=== PATIENT | male | born 1985 | race African-American/Black ===

== ENCOUNTER 2016-09-14 01:17 | Emergency (ER) | payer MEDICAID, OTHER ==
[~2016-09-14] VITALS: Ht 185.4 cm; Wt 113.6 kg
[~2016-09-14 01:17] MED LIST: AMLO2.5T2 PO; DIVA500T52 PO; DOCU250C91 PO; HALO50VI4 IM; LITH300C3 PO; OLAN20TA2 PO; QUET300T2 PO
[2016-09-14] MEDS ORDERED: PALI78DI IM (01:28)
[2016-09-14 02:25] VITALS: BP 133/80
== END 2016-09-14 02:28 | disposition home or self-care (01) ==
LOC: EMS 01:17
DX: S90.31XA Contusion of right foot, initial encounter (principal); F17.210 Nicotine dependence, cigarettes, uncomplicated; W04.XXXA Fall while being carried or supported by other persons, initial encounter; Y93.89 Activity, other specified; Y92.89 Other specified places as the place of occurrence of the external cause; Y99.8 Other external cause status
CPT/HCPCS: 99284

== ENCOUNTER 2016-12-08 00:19 | Emergency (ER) | payer OTHER ==
[~2016-12-08] VITALS: Ht 190.5 cm; Wt 109.0 kg
[~2016-12-08 00:19] MED LIST changes: -AMLO2.5T2 PO; -DIVA500T52 PO; -DOCU250C91 PO; -HALO50VI4 IM; -LITH300C3 PO; -OLAN20TA2 PO; +PALI78DI IM; -QUET300T2 PO
[2016-12-08] MEDS ORDERED: KETOROLAC TROMETHAMINE 60 MG/2 ML VIAL IM ONE (01:15)
[2016-12-08] MEDS ORDERED: ACETAMINOPHEN 500 MG TABLET PO ONE (01:15)
[2016-12-08 01:18] VITALS: BP 135/76
== END 2016-12-08 01:26 | disposition home or self-care (01) ==
LOC: EMS 00:21
DX: S30.0XXA Contusion of lower back and pelvis, initial encounter (principal); F17.210 Nicotine dependence, cigarettes, uncomplicated; F20.9 Schizophrenia, unspecified; I10 Essential (primary) hypertension; Z59.0 Homelessness; Z98.890 Other specified postprocedural states; W01.0XXA Fall on same level from slipping, tripping and stumbling without subsequent striking against object, initial encounter; Y93.89 Activity, other specified; Y92.89 Other specified places as the place of occurrence of the external cause; Y99.9 Unspecified external cause status
CPT/HCPCS: 96372; 99283; 99406; J1885

== ENCOUNTER 2016-12-24 21:28 | Inpatient (IN) | payer MEDICAID, OTHER ==
[~2016-12-24] VITALS: Ht 190.5 cm; Wt 109.4 kg
[2016-12-24] MEDS ORDERED: ZOLPIDEM TARTRATE 10 MG TABLET PO PRN (22:30)
[2016-12-24] MEDS ORDERED: LORazepam 2 MG TABLET PO PRN (22:30)
[2016-12-24] MEDS ORDERED: OLANZapine 5 MG RAPDIS TABLET PO PRN (22:30)
[2016-12-24 22:52] VITALS: BP 127/69
[2016-12-25 00:05] VITALS: BP 125/70
[2016-12-25 08:00] VITALS: BP 124/81
[2016-12-25 08:23] LABS: BASOPHILS % (AUTO) 0.4 % (0.0-2.0); HEMATOCRIT 42.8 % (41-53); HEMOGLOBIN 14.8 g/dL (13.5-17.5); LYMPHOCYTES # (AUTO) 2.9 K/uL (1.0-4.8); LYMPHOCYTES % (AUTO) 34.5 % (22.0-44.0); MEAN CORPUSCULAR HEMOGLOBIN 30.2 pg (26.0-34.0); MEAN CORPUSCULAR HGB CONC 34.7 G/dL (31.0-37.0); MEAN CORPUSCULAR VOLUME 87 fL (80-100); MONOCYTES # (AUTO) 0.6 K/uL (0.1-1.0); MONOCYTES % (AUTO) 6.8 % (2.0-9.0); NEUTROPHILS # (AUTO) 4.7 K/uL (1.8-7.7); NEUTROPHILS % (AUTO) 55.3 % (40.0-70.0); PLATELET COUNT (AUTO) 346 K/uL (150-450); RED BLOOD CELL COUNT(AUTO) 4.92 MIL/uL (4.50-5.90); RED CELL DISTRIBUTION WIDTH 15.4 % (11.5-14.5); WHITE BLOOD COUNT (AUTO) 8.5 K/uL (4.5-11.0)
[2016-12-25 09:00] LABS: ALANINE AMINOTRANSFERASE 21 U/L (12-78); ALBUMIN 3.8 g/dL (3.4-5.0); ANION GAP 12 mmol/L (8-16); ASPARTATE AMINOTRANSFERASE 18 U/L (15-37); BILIRUBIN,TOTAL 0.7 mg/dL (0.1-1.0); CALCIUM, TOTAL 9.8 mg/dL (8.8-10.5); CARBON DIOXIDE 25 mmol/L (22-29); CHLORIDE 106 mmol/L (98-107); CHOL/HDL RATIO 5.6 (4.2-7.3); CREATININE 0.86 mg/dL (0.60-1.30); GLOMERULAR FILTR. RATE CALC > 60 mL/min (>60); SODIUM SERUM 143 mmol/L (136-145); THYROID STIMULATING HORMONE 0.54 uIU/mL (0.36-3.74); TOTAL PROTEIN, SERUM 7.8 g/dL (6.4-8.2); UREA NITROGEN, BLOOD 11 mg/dL (7-18)
[2016-12-25] MEDS: IBUPROFEN 600 MG TABLET PO PRN ×2 (09:43→17:38)
[2016-12-25] MEDS ORDERED: ACETAMINOPHEN 325 MG TABLET PO PRN ×2 (09:45→14:00)
[2016-12-25] MEDS: NICOTINE 21 MG/24 HOUR PATCH TD SCH (13:22)
[2016-12-25] MEDS ORDERED: HydrOXYzine PAMOATE 50 MG CAPSULE PO PRN (14:00)
[2016-12-25] MEDS ORDERED: LOPERAMIDE HCL 2 MG CAPSULE PO PRN (14:00)
[2016-12-25] MEDS ORDERED: PROMETHAZINE HCL 25 MG TABLET PO PRN (14:00)
[2016-12-25] MEDS ORDERED: MAGNESIUM HYDROXIDE SUSPENSION 30 ML UDCUP PO PRN (14:00)
[2016-12-25] MEDS ORDERED: TUBERCULIN, PURIFIED PROTEIN DERIVATIVE 5 TU/0.1 ML SYG ID ONE (14:00)
[2016-12-25] MEDS ORDERED: MAG HYDROX/AL HYDROX/SIMETH ES 30 ML SUSPENSION UDCUP PO PRN (14:00)
[2016-12-25] MEDS ORDERED: GuaiFENesin/D-METHORPHAN [SUGAR-FREE] 200-20MG/10 ML SYRUP UDCUP PO PRN (14:00)
[2016-12-25 16:00] VITALS: BP 129/88
[2016-12-25] MEDS ORDERED: NALT50 PO (16:29)
[2016-12-25] MEDS ORDERED: PALI3 PO (16:29)
[2016-12-25] MEDS ORDERED: PALIPERIDONE 3 MG ER TABLET PO PRN (16:30)
[2016-12-25] MEDS: THIAMINE HCL 100 MG TABLET PO SCH (17:38)
[2016-12-25] MEDS ORDERED: OLANZapine 5 MG RAPDIS TABLET PO SCH (21:00)
[2016-12-25] MEDS ORDERED: PALIPERIDONE 3 MG ER TABLET PO SCH ×2 (21:00)
[2016-12-26 07:21] VITALS: BP 134/72
[2016-12-26] MEDS: NICOTINE 21 MG/24 HOUR PATCH TD SCH (08:35)
[2016-12-26] MEDS: IBUPROFEN 600 MG TABLET PO PRN (08:35)
[2016-12-26] MEDS: THIAMINE HCL 100 MG TABLET PO SCH (08:36)
[2016-12-26 08:39] VITALS: BP 140/78
[2016-12-26] MEDS ORDERED: FOLIC ACID 1 MG TABLET PO SCH (09:00)
[2016-12-26] MEDS ORDERED: MULTIVITAMINS WITH MINERALS, THERAPEUTIC TABLET PO SCH (09:00)
[2016-12-26] MEDS ORDERED: NALTREXONE HCL 50 MG TABLET PO SCH (09:00)
== END 2016-12-26 10:00 | disposition home or self-care (01) | DRG 750 ==
LOC: B3A 22:51 → EDSTATUS 23:38
PROVIDERS: ADMIT Psychiatry & Neurology Psychiatry; ATTEND Psychiatry & Neurology Psychiatry
PROC: GZ51ZZZ Individual Psychotherapy, Behavioral (ICD-10-PCS; principal; 2016-12-24)
DX: F25.0 Schizoaffective disorder, bipolar type (principal); Z91.19 Patient's noncompliance with other medical treatment and regimen; F17.210 Nicotine dependence, cigarettes, uncomplicated; F12.90 Cannabis use, unspecified, uncomplicated; R26.81 Unsteadiness on feet; Z60.2 Problems related to living alone; M54.9 Dorsalgia, unspecified; Z53.29 Procedure and treatment not carried out because of patient's decision for other reasons; Z79.899 Other long term (current) drug therapy; Z81.8 Family history of other mental and behavioral disorders; Z87.442 Personal history of urinary calculi
CPT/HCPCS: 83036; 84439; 84443

== ENCOUNTER 2020-07-04 00:08 | Emergency (ER) | payer MEDICAID, OTHER ==
[~2020-07-04] VITALS: Ht 195.6 cm; Wt 108.6 kg
[~2020-07-04 00:08] MED LIST changes: +NALT50TA6 PO; +PALI3TAB14 PO
[2020-07-04] MEDS ORDERED: KETOROLAC TROMETHAMINE 30 MG/ML VIAL IM ONE (01:00)
[2020-07-04 02:20] LABS: COVID AG,FIA SOURCE NASOPHARYNGEAL
[2020-07-04 03:30] VITALS: BP 119/74
== END 2020-07-04 03:37 | disposition home or self-care (01) ==
LOC: EMS 00:10
DX: M25.551 Pain in right hip (principal); F17.210 Nicotine dependence, cigarettes, uncomplicated; F20.9 Schizophrenia, unspecified; Z20.822 Contact with and (suspected) exposure to COVID-19
CPT/HCPCS: 73502; 87426; 96372; 99284; J1885

== ENCOUNTER 2020-10-29 04:10 | Emergency (ER) | payer OTHER ==
[~2020-10-29] VITALS: Ht 188 cm; Wt 108.0 kg
[2020-10-29 06:12] VITALS: BP 127/88
== END 2020-10-29 06:54 | disposition home or self-care (01) ==
LOC: EMS 04:14
DX: S80.02XA Contusion of left knee, initial encounter (principal); F20.9 Schizophrenia, unspecified; F17.210 Nicotine dependence, cigarettes, uncomplicated; Y04.2XXA Assault by strike against or bumped into by another person, initial encounter; Y93.89 Activity, other specified; Y92.89 Other specified places as the place of occurrence of the external cause; Y99.8 Other external cause status
CPT/HCPCS: 99283